=== PATIENT | female | born 1945 | race Caucasian/White ===

== ENCOUNTER 2025-04-23 10:29 | Inpatient (IN) | payer MEDICARE ==
[2025-04-23 12:11] LABS: #Basophils Less than 0.03 10x3/uL (0.0-0.2); #Eosinophils Less than 0.03 10x3/uL (0.0-0.7); #Monocytes 0.42 10x3/uL (0.11-0.59); #Neutrophils 14.50 10x3/uL (1.40-6.50); %Basophils 0.1 % (0.0-1.0); %Eosinophils 0.0 % (0.0-10.0); %Lymphocytes 1.6 % (21.0-51.0); %Monocytes 2.7 % (0.0-10.0); %Neutrophils 94.9 % (42.0-75.0); Hematocrit 34.0 % (36.0-47.0); Hemoglobin 10.3 g/dL (12.0-16.0); Mean Corpuscular Hemoglobin 30.5 pg (27.0-31.0); Mean Corpuscular Volume 100.6 fL (78.0-98.0); Platelet Count 364 10x3/uL (130-400); Red Blood Cell (RBC) Count 3.38 mill/uL (4.20-5.40); White Blood Cell (WBC) Count 15.29 10x3/uL (4.8-10.8)
[2025-04-23 12:38] LABS: ALT (SGPT) 17 U/L (Less than 34); AST (SGOT) 21 U/L (11-34); Albumin 3.0 g/dL (3.1-4.5); Alkaline Phosphatase 108 U/L (40-110); Anion Gap 22 mmol/L (10-20); BUN (Urea Nitrogen) 94 mg/dL (9.8-20.1); Bilirubin, Total 0.3 mg/dL (0.3-1.2); Calc. Creatinine Clearance 0 mL/min (70-130); Calcium 8.9 mg/dL (7.8-10.44); Carbon Dioxide 8 mmol/L (23-31); Chloride 120 mmol/L (98-107); Globulin 4.3 g/dL (2.4-3.5); Glucose 91 mg/dL (83-110); Potassium 6.6 mmol/L (3.5-5.1); Sodium 143 mmol/L (136-145)
[2025-04-23] MEDS ORDERED: Calcium Chloride 1 GM/10 ML Abboject SYRINGE ONE (12:41)
[2025-04-23] MEDS ORDERED: Dextrose 50% Abboject 50 ML SYRINGE ONE (12:41)
[2025-04-23 14:14] LABS: Bacteria/HPF None Seen HPF (None Seen); CAUTI Indications for Culture Alt mental st,lethar; Glucose, Urine (Dipstick) 70 mg/dL (Negative); Leukocyte 500 Leu/uL (Negative); Protein, Urine (Dipstick) 100 mg/dL (Neg-Trace); RBC/HPF 0-3 HPF (0-3); Specific Gravity, Urine 1.011 (1.002-1.036); WBC/HPF Greater than 50 HPF (0-3)
[2025-04-23 14:15] LABS: Urine Culture Reflex Yes Yes
[2025-04-23] MEDS ORDERED: cefTRIAXone (ROCEPHIN) 1 GM VIAL ONE (15:31)
[2025-04-23] MEDS ORDERED: Vancomycin 1 GM/200 ML (FROZEN) BAG ONE (17:23)
[2025-04-23 18:42] LABS: ALT (SGPT) 14 U/L (Less than 34); AST (SGOT) 22 U/L (11-34); Albumin 2.5 g/dL (3.1-4.5); Alkaline Phosphatase 90 U/L (40-110); Anion Gap 18 mmol/L (10-20); BUN (Urea Nitrogen) 87 mg/dL (9.8-20.1); Bilirubin, Total 0.2 mg/dL (0.3-1.2); Calc. Creatinine Clearance 0 mL/min (70-130); Calcium 9.5 mg/dL (7.8-10.44); Carbon Dioxide 9 mmol/L (23-31); Chloride 124 mmol/L (98-107); Globulin 3.3 g/dL (2.4-3.5); Glucose 77 mg/dL (83-110); Potassium 5.7 mmol/L (3.5-5.1); Sodium 145 mmol/L (136-145)
[2025-04-23 19:28] VITALS: BMI 14.5
[2025-04-23 19:38] LABS: Sodium, Urine 113.0 mmol/L (Not Available)
[2025-04-23 20:20] LABS: Magnesium 2.2 mg/dL (1.6-2.6)
[2025-04-23] MEDS: Heparin 5,000 UNITS/ML VIAL SC SCH (21:30)
[2025-04-24 01:34] LABS: Anion Gap 15 mmol/L (10-20); BUN (Urea Nitrogen) 96 mg/dL (9.8-20.1); Calc. Creatinine Clearance 6 mL/min (70-130); Calcium 9.1 mg/dL (7.8-10.44); Carbon Dioxide 9 mmol/L (23-31); Chloride 125 mmol/L (98-107); Glucose 87 mg/dL (83-110); Potassium 5.6 mmol/L (3.5-5.1); Sodium 143 mmol/L (136-145)
[2025-04-24 05:14] LABS: Hematocrit 27.5 % (36.0-47.0); Hemoglobin 8.2 g/dL (12.0-16.0); Mean Corpuscular Hemoglobin 30.9 pg (27.0-31.0); Mean Corpuscular Volume 103.8 fL (78.0-98.0); Platelet Count 260 10x3/uL (130-400); Red Blood Cell (RBC) Count 2.65 mill/uL (4.20-5.40); White Blood Cell (WBC) Count 11.26 10x3/uL (4.8-10.8)
[2025-04-24 05:41] LABS: ALT (SGPT) 10 U/L (Less than 34); AST (SGOT) 27 U/L (11-34); Albumin 2.2 g/dL (3.1-4.5); Anion Gap 14 mmol/L (10-20); Anisocytosis SLIGHT = 6-15 cells HPF (0-5); BUN (Urea Nitrogen) 96 mg/dL (9.8-20.1); Bilirubin, Total 0.2 mg/dL (0.3-1.2); Calc. Creatinine Clearance 6 mL/min (70-130); Calcium 8.8 mg/dL (7.8-10.44); Carbon Dioxide 10 mmol/L (23-31); Chloride 125 mmol/L (98-107); Globulin 3.2 g/dL (2.4-3.5); Glucose 86 mg/dL (83-110); Macrocytosis SLIGHT = 6-15 cells HPF (0-5); Platelet Adequacy Comment Platelets Normal; Polychromasia SLIGHT = 2-3 cells HPF (0-2); Potassium 5.3 mmol/L (3.5-5.1); Sodium 144 mmol/L (136-145)
[2025-04-24 06:09] LABS: Alkaline Phosphatase 81 U/L (40-110)
[2025-04-24] MEDS ORDERED: FLU (Fluad Triv) 25-26 (65UP)PF 45 MCG/0.5 ML Syringe IM ONE (09:00)
[2025-04-24] MEDS ORDERED: Cefepime 0.5 GM in Admixture Fee 1 EACH IVPB SCH (09:00)
[2025-04-24] MEDS ORDERED: Glycerin Pediatric Sup. (4ml) PR PRN (10:52)
[2025-04-24] MEDS ORDERED: Glycerin Adult Supp. (12 ct jar) PR PRN (10:54)
[2025-04-24 11:56] VITALS: BMI 14.5
[2025-04-24 15:00] LABS: ALT (SGPT) 14 U/L (Less than 34); AST (SGOT) 24 U/L (11-34); Albumin 2.2 g/dL (3.1-4.5); Alkaline Phosphatase 73 U/L (40-110); Anion Gap 17 mmol/L (10-20); BUN (Urea Nitrogen) 92 mg/dL (9.8-20.1); Bilirubin, Total 0.2 mg/dL (0.3-1.2); Calc. Creatinine Clearance 6 mL/min (70-130); Calcium 8.8 mg/dL (7.8-10.44); Carbon Dioxide 9 mmol/L (23-31); Chloride 124 mmol/L (98-107); Globulin 3.2 g/dL (2.4-3.5); Glucose 97 mg/dL (83-110); Potassium 5.0 mmol/L (3.5-5.1); Sodium 145 mmol/L (136-145)
[2025-04-24 16:07] VITALS: BP 98/53; TEMP 98.2
== END 2025-04-24 21:00 | DRG 70 ==
LOC: ERS 10:29 → 2NO 16:41
PROVIDERS: ADMIT Student in an Organized Health Care Education/Training Program; ATTEND Student in an Organized Health Care Education/Training Program
DX: G93.41 Metabolic encephalopathy (principal); A41.9 Sepsis, unspecified organism; E43 Unspecified severe protein-calorie malnutrition; N17.9 Acute kidney failure, unspecified; E87.20 Acidosis, unspecified; N39.0 Urinary tract infection, site not specified; Z68.1 Body mass index [BMI] 19.9 or less, adult; N18.5 Chronic kidney disease, stage 5; M32.9 Systemic lupus erythematosus, unspecified; J44.9 Chronic obstructive pulmonary disease, unspecified; E03.9 Hypothyroidism, unspecified; E11.42 Type 2 diabetes mellitus with diabetic polyneuropathy; Z96.641 Presence of right artificial hip joint; F32.A Depression, unspecified; E87.6 Hypokalemia; K21.9 Gastro-esophageal reflux disease without esophagitis; N18.9 Chronic kidney disease, unspecified; E86.0 Dehydration; K56.41 Fecal impaction; Z98.890 Other specified postprocedural states; Z88.1 Allergy status to other antibiotic agents; Z88.0 Allergy status to penicillin; Z88.2 Allergy status to sulfonamides; Z91.81 History of falling; Z79.899 Other long term (current) drug therapy; Z79.890 Hormone replacement therapy
CPT/HCPCS: 36415; 36416; 70450; 71045; 71250; 74177; 80053; 81001; 82570; 83605; 83735; 84100; 84300; 85025; 87086; 93005; 96365; 96375; J0692; J0696; J1644; J1815; J3373; J7070; J7120; J7999